=== PATIENT | female | born 1990 | race Caucasian/White ===

== ENCOUNTER → 2017-06-21 | Outpatient (REF) | payer OTHER ==
[2017-06-21 11:51] LABS: MEAN CORPUSCULAR HEMOGLOBIN 30.2 pg (27.0-33.0); MEAN CORPUSCULAR HGB CONC 33.9 g/dl (32.0-36.5); MEAN CORPUSCULAR VOLUME 89.1 fl (80.0-96.0); PLATELET COUNT, AUTOMATED 250 10^3/uL (150-450); RED CELL DISTRIBUTION WIDTH 12.3 % (11.5-14.5); WHITE BLOOD COUNT 6.1 10^3/uL (4.0-10.0)
[2017-06-21 12:35] LABS: ALBUMIN 3.9 GM/DL (3.2-5.2); ALBUMIN/GLOBULIN RATIO 1.11 (1.00-1.93); ALKALINE PHOSPHATASE 48 U/L (45-117); ALT/SGPT 23 U/L (12-78); ANION GAP 8 MEQ/L (8-16); AST/SGOT 19 U/L (7-37); BILIRUBIN,TOTAL 0.6 MG/DL (0.2-1.0); BLOOD UREA NITROGEN 12 MG/DL (7-18); CALCIUM LEVEL 8.7 MG/DL (8.5-10.1); CARBON DIOXIDE LEVEL 25 MEQ/L (21-32); CHLORIDE LEVEL 108 MEQ/L (98-107); CREATININE FOR GFR 0.94 MG/DL (0.55-1.02); FREE T4 1.13 NG/DL (0.76-1.46); GLOMERULAR FILTRATION RATE > 60.0 (>60); GLUCOSE, FASTING 84 MG/DL (70-105); POTASSIUM SERUM 4.4 MEQ/L (3.5-5.1); SODIUM LEVEL 141 MEQ/L (136-145); TOTAL PROTEIN 7.4 GM/DL (6.4-8.2)
[2017-06-21 12:47] LABS: VITAMIN B12 LEVEL 239 PG/ML (247-911)
== END ==
LOC: M SFHCCLAY 07:03
PROVIDERS: ATTEND Family Medicine
DX: R63.5 Abnormal weight gain (principal)

== ENCOUNTER → 2017-07-01 | Outpatient (REF) | payer OTHER | LOC: M SFHCCLAY 15:35 | PROVIDERS: ATTEND Family Medicine | DX: Z12.4 Encounter for screening for malignant neoplasm of cervix (principal) | CPT/HCPCS: 87070; 87491; 87591; G0123 ==

== ENCOUNTER → 2017-08-09 | Outpatient (REF) | payer OTHER ==
[2017-08-09 11:55] LABS: VITAMIN B12 LEVEL 692 PG/ML (247-911)
[2017-08-09 12:03] LABS: ERYTHROCYTE SEDIMENTATION RATE 3 mm/hr (0-20)
[2017-08-09 12:14] LABS: C REACTIVE PROTEIN QUANTITATIV 1.03 MG/DL (0.00-0.30); RHEUMATOID FACTOR QUANT < 10.0 IU/ML (0-15.0)
[2017-08-09 12:14] LABS: URIC ACID 4.6 MG/DL (2.6-6.0)
[2017-08-11 00:06] LABS: ANA (HEP2) Negative (.)
== END ==
LOC: M SFHCCLAY 07:00
DX: M25.50 Pain in unspecified joint (principal); E55.9 Vitamin D deficiency, unspecified

== ENCOUNTER → 2017-09-14 | Outpatient (CLI) | payer OTHER | LOC: M CLY 15:34 | DX: M25.552 Pain in left hip (principal); M25.551 Pain in right hip | CPT/HCPCS: 73521 ==

== ENCOUNTER → 2017-09-14 | Outpatient (REF) | payer OTHER ==
[2017-09-17 00:07] LABS: Lyme Disease IgG/IgM Antibodie <0.91 ISR (0.00-0.90); Lyme Disease IgM Ab Quantitati <0.80 index (0.00-0.79)
== END ==
LOC: M SFHCCLAY 15:08
DX: M25.552 Pain in left hip (principal); M25.551 Pain in right hip

== ENCOUNTER → 2017-10-25 | Outpatient (REF) | payer OTHER ==
[2017-10-25 21:00] LABS: C REACTIVE PROTEIN QUANTITATIV 0.78 MG/DL (0.00-0.30)
[2017-10-28 00:08] LABS: CYCLIC CITRULLINATED PEPTIDE 5 units (0-19)
== END ==
LOC: M SFHCLERA 14:41
DX: R79.82 Elevated C-reactive protein (CRP) (principal)
CPT/HCPCS: 86140

== ENCOUNTER → 2018-04-08 | Outpatient (CLI) | payer OTHER ==
[2018-04-08 08:50] LABS: BASO # 0.1 10^3/uL (0.0-0.2); BASO % 0.5 % (0.0-1.0); HEMATOCRIT 41.9 % (36.0-47.0); HEMOGLOBIN 14.2 g/dl (12.0-15.5); IMMATURE GRANULOCYTE % 0.2 % (0-3.0); LYMPH # 1.9 10^3/uL (1.5-6.5); LYMPH % 19.6 % (24.0-44.0); MEAN CORPUSCULAR HEMOGLOBIN 30.6 pg (27.0-33.0); MEAN CORPUSCULAR HGB CONC 33.9 g/dl (32.0-36.5); MEAN CORPUSCULAR VOLUME 90.3 fl (80.0-96.0); MONO # 0.8 10^3/uL (0.0-0.8); MONO % 8.2 % (0.0-5.0); NEUTROPHILS # 6.8 10^3/uL (1.8-7.7); NEUTROPHILS % 71.5 % (36.0-66.0); PLATELET COUNT, AUTOMATED 242 10^3/uL (150-450); RED BLOOD COUNT 4.64 10^6/uL (4.00-5.40); RED CELL DISTRIBUTION WIDTH 12.4 % (11.5-14.5); WHITE BLOOD COUNT 9.5 10^3/uL (4.0-10.0)
[2018-04-08 09:11] LABS: ANION GAP 8 MEQ/L (8-16); BLOOD UREA NITROGEN 15 MG/DL (7-18); CALCIUM LEVEL 8.8 MG/DL (8.5-10.1); CARBON DIOXIDE LEVEL 26 MEQ/L (21-32); CHLORIDE LEVEL 108 MEQ/L (98-107); CREATININE FOR GFR 1.12 MG/DL (0.55-1.30); GLOMERULAR FILTRATION RATE > 60.0 (>60); GLUCOSE, FASTING 85 MG/DL (70-100); SODIUM LEVEL 142 MEQ/L (136-145)
== END ==
LOC: M WUC 08:11
DX: Z01.818 Encounter for other preprocedural examination (principal); M20.11 Hallux valgus (acquired), right foot; M79.671 Pain in right foot
CPT/HCPCS: 80048

== ENCOUNTER 2018-04-15 07:12 | Day surgery (SDC) | payer OTHER ==
[2018-04-15] MEDS: LR 1,000 ML IV (07:49)
[2018-04-15 07:58] LABS: CONTROL LINE HCG INT CTR LINE PRESENT; HCG, SERUM QUALITATIVE NEGATIVE (NEGATIVE)
[2018-04-15] MEDS ORDERED: dexameTHASONE 4 MG/ML 1ML VIAL (J1100) As Ordered (08:06)
[2018-04-15] MEDS ORDERED: fentaNYL 100 MCG/2 ML INJECTION (J3010) As Ordered (08:54)
[2018-04-15] MEDS ORDERED: MIDAZOLAM INJ 2 MG/2 ML VIAL (J2250) As Ordered (08:54)
[2018-04-15] MEDS ORDERED: PROPOFOL 200 MG/20 ML VIAL As Ordered (08:54)
[2018-04-15] MEDS: BUPIVACAINE HCL 0.5% 30 ML VIAL As Ordered (08:56)
[2018-04-15] MEDS: LIDOCAINE 2% MDV 20 ML VIAL As Ordered (08:56)
[2018-04-15] MEDS: NEOSPORIN GU IRRIG 20 ML VIAL As Ordered (09:14)
[2018-04-15] MEDS: BACITRACIN PWD 50,000 UNITS VIAL As Ordered (09:14)
[2018-04-15] MEDS ORDERED: IBUPROFEN 800 MG TAB As Ordered (09:56)
[2018-04-15] MEDS: IBUPROFEN 800 MG TAB PO (10:00)
== END 2018-04-15 11:12 | disposition home or self-care (01) ==
LOC: M SDC 07:12
DX: M20.11 Hallux valgus (acquired), right foot (principal); I34.8 Other nonrheumatic mitral valve disorders
CPT/HCPCS: 28296

== ENCOUNTER 2018-09-06 19:01 | Emergency (ER) | payer OTHER ==
[~2018-09-06] VITALS: Ht 170.2 cm; Wt 80.5 kg
[2018-09-06] MEDS ORDERED: [UNRECOGNIZED DRUG - OTHER] (20:00)
[2018-09-06] MEDS ORDERED: vitamin d PO (20:00)
[2018-09-06] MEDS ORDERED: vitamin b PO (20:00)
[2018-09-06] MEDS ORDERED: TETRACAINE 0.5% OPHTH SOLN 4ML OU ONE (20:30)
--- NOTE | 2018-09-06 21:30 | REP ---
Clinical: Facial spasms and blurred vision . Comparison: None . Findings: The ventricles, sulci, and cisterns are normal in position and appearance. Silvestre-white differentiation is maintained. No acute intracranial hemorrhage, mass/mass effect, pathology or trauma/injury. No evidence for acute infarction. No extra-axial fluid collection. Calvarium is intact. Paranasal sinuses and mastoid air cells are clear. Impression: Normal noncontrast head CT. No evidence for acute intracranial pathology or trauma/injury. Electronically Signed by Edmundo Osorio MD 09/06/2018 09:21 P
[2018-09-06 21:55] VITALS: BP 131/80
== END 2018-09-06 22:02 | disposition home or self-care (01) ==
LOC: M ED 19:01
DX: H53.8 Other visual disturbances (principal); G51.0 Bell's palsy; I34.1 Nonrheumatic mitral (valve) prolapse; Z79.899 Other long term (current) drug therapy

== ENCOUNTER → 2018-09-06 | Outpatient (REF) | payer OTHER ==
[~2018-09-06] MED LIST: [UNRECOGNIZED DRUG - OTHER]; vitamin b PO; vitamin d PO
[2018-09-06 20:53] LABS: CHLAMYDIA DNA AMPLIFICATION NEGATIVE (NEGATIVE); GC DNA AMPLIFICATION NEGATIVE (NEGATIVE)
== END ==
LOC: M SFHCWAGY 15:32
PROVIDERS: ATTEND Nurse Practitioner Women's Health
DX: Z12.4 Encounter for screening for malignant neoplasm of cervix (principal); Z11.3 Encounter for screening for infections with a predominantly sexual mode of transmission
CPT/HCPCS: 87491; 87591; G0123

== ENCOUNTER → 2019-04-19 | Outpatient (REF) | payer OTHER | LOC: M LAB REF 12:00 | PROVIDERS: ATTEND Physician Assistant | DX: J03.90 Acute tonsillitis, unspecified (principal) ==

== ENCOUNTER → 2019-05-08 | Outpatient (REF) | payer OTHER | LOC: M LAB REF 09:54 | PROVIDERS: ATTEND Physician Assistant | DX: N39.0 Urinary tract infection, site not specified (principal) ==

== ENCOUNTER → 2019-09-21 | Outpatient (REF) | payer OTHER ==
[~2019-09-21] MED LIST changes: +ACET-683 PO; +ERRI0.35 PO; +OXYC-517 PO
[2019-09-21 15:26] LABS: CHLAMYDIA DNA AMPLIFICATION NEGATIVE (NEGATIVE); GC DNA AMPLIFICATION NEGATIVE (NEGATIVE)
== END ==
LOC: M SFHCWAGY 13:02
PROVIDERS: ATTEND Nurse Practitioner Women's Health
DX: Z11.3 Encounter for screening for infections with a predominantly sexual mode of transmission (principal)
CPT/HCPCS: 87661; G0123

== ENCOUNTER 2019-09-27 14:23 | Day surgery (SDC) | payer OTHER ==
[~2019-09-27] VITALS: Ht 170.2 cm; Wt 87.1 kg
[~2019-09-27 14:23] MED LIST changes: +LIDOCAINE 2% INJ 100 MG/5 ML SDV (FOR ANES.) As Ordered ONE; +LR 1,000 ML IV ONE; +MIDAZOLAM INJ 2 MG/2 ML VIAL (J2250) As Ordered ONE; +ONDANSETRON 4MG/2ML VIAL (J2405) As Ordered ONE; +ceFAZolin SOD 2 GM in IV 1 EA IV ONE; +dexameTHASONE 4 MG/ML 1ML VIAL (J1100) As Ordered ONE; +fentaNYL 100 MCG/2 ML INJECTION (J3010) As Ordered ONE; +propofoL 200 MG/20 ML VIAL As Ordered ONE
[2019-09-27] MEDS ORDERED: ROPIvacaine 0.5% 30 ML INJECTION (J2795 PER 1MG) ONE ×2 (14:24)
[2019-09-27] MEDS ORDERED: dexameTHASONE 10 MG/1 ML VIAL PRES.FREE (J1100) ONE ×2 (14:24)
[2019-09-27] MEDS ORDERED: fentaNYL 100 MCG/2 ML INJECTION (J3010) As Ordered ONE ×2 (15:31→17:26)
[2019-09-27] MEDS ORDERED: MIDAZOLAM INJ 2 MG/2 ML VIAL (J2250) As Ordered ONE (15:31)
[2019-09-27] MEDS ORDERED: fentaNYL 100 MCG/2 ML INJECTION (J3010) IV ONE (16:00)
[2019-09-27] MEDS ORDERED: MIDAZOLAM INJ 2 MG/2 ML VIAL (J2250) IV ONE (16:00)
[2019-09-27] MEDS ORDERED: ACETAMINOPHEN 1000MG 100ML IV BTL (OFIRMEV) (J0131 PER 10MG) As Ordered ONE (16:24)
[2019-09-27] MEDS ORDERED: KETOROLAC 60 MG/2 ML VIAL (J1885) As Ordered ONE (16:25)
--- NOTE | 2019-09-27 17:59 | REP ---
Left ankle: Five views. History: Intraoperative imaging. 41 seconds of fluoroscopy time is reported. Findings: A sequence of five last image hold fluoroscopically obtained spot radiographs of the left ankle document open reduction internal fixation procedure. Electronically Signed by Ifeanyi Schaefer MD 09/27/2019 05:50 P
[2019-09-27] MEDS ORDERED: fentaNYL 100 MCG/2 ML INJECTION (J3010) IV PRN (18:15)
[2019-09-27] MEDS ORDERED: LR 1,000 ML IV SCH ×2 (18:15→18:30)
[2019-09-27] MEDS ORDERED: oxyCODONE 5MG TAB PO PRN (18:15)
[2019-09-27] MEDS ORDERED: ONDANSETRON 4MG/2ML VIAL (J2405) IV PRN (18:15)
[2019-09-27 19:30] VITALS: BP 134/65
--- NOTE | 2019-09-27 20:41 | RO ---
DATE OF PROCEDURE: 09/27/2019 PREPROCEDURE DIAGNOSIS: Left bimalleolar equivalent ankle fracture. POSTPROCEDURE DIAGNOSIS: Left bimalleolar equivalent ankle fracture. PROCEDURE: Open reduction, internal fixation (ORIF) left ankle. SURGEON: Jazmín Matthews MD DRY KILN FEEDER: CHANTELLE Llamas ESTIMATED BLOOD LOSS: 75 mL. COMPLICATIONS: None. CONDITION: Stable to recovery. INDICATIONS: Nely Kimbrough is a 29-year-old female who sustained a mechanical fall. The patient sustained an unstable left ankle fracture. Risks and benefits of the surgery were discussed with the patient in detail and included but not limited to infection, damage to nerves and blood vessels, continued pain and stiffness, need for additional procedures. Informed consent was obtained in the office. DESCRIPTION OF PROCEDURE: The patient was met in the preoperative holding area where her left lower extremity was marked as the correct operative site. She was taken to the operating room and placed in the supine position on the operating room table. Bony prominences were well padded. She received antibiotics within 60 minutes prior to incision. A well padded tourniquet was placed on the left upper thigh. She was then prepped and draped in the normal sterile fashion. An official time-out was held where the correct patient, operative site, and operative procedure were verified. An incision was made over the posterolateral aspect of the distal fibula. Fracture was approached and was found to be comminuted and extending fairly proximally. The fracture was cleaned with hematoma and debrided. It was reduced using a series of pointed reduction clamps. This was further secured using a 0.062 K wire. Following this, a 2.7 mm lag screw was placed by technique. Next, an Arthrex locking plate was selected. This fit nicely to the bone. It was secured proximally with a 3.5 mm cortical screw and then distally with 2.7 mm locking screws. X-rays were performed in AP, mortise and lateral view and found to be satisfactory. There was an external rotation stress view that was done and there was no widening of the ankle mortise. A cotton exam was also negative. Following this, copious irrigation was performed. Periosteum was closed over the plate. Soft tissues were closed with 3-0 Vicryl and the skin was closed using 3-0 nylon. A well padded splint was applied. The patient was extubated and transferred to the recovery room in stable condition. PLAN: The patient will be non weightbearing to the left lower extremity for 6 weeks. She will be on aspirin for deep vein thrombosis (DVT) prophylaxis. I will see her back in 2 weeks for a splint change and placement of a cast. She will transition into a boot at 4 weeks postoperatively.
== END 2019-09-27 19:50 | disposition home or self-care (01) ==
LOC: M SDC 14:23
PROVIDERS: ATTEND Orthopaedic Surgery
DX: S82.841A Displaced bimalleolar fracture of right lower leg, initial encounter for closed fracture (principal); W01.0XXA Fall on same level from slipping, tripping and stumbling without subsequent striking against object, initial encounter; Y92.89 Other specified places as the place of occurrence of the external cause; Y93.9 Activity, unspecified; Y99.9 Unspecified external cause status; I05.9 Rheumatic mitral valve disease, unspecified; Z79.899 Other long term (current) drug therapy; Z88.8 Allergy status to other drugs, medicaments and biological substances
CPT/HCPCS: 27814; 64445; 76000; 81025; C1713; J0131; J0690; J1100; J2250; J2405; J2795; J3010

== ENCOUNTER → 2020-03-16 | Outpatient (CLI) | payer BC ==
[~2020-03-16] MED LIST changes: -ERRI0.35 PO; +ERRI0.355 PO; -LIDOCAINE 2% INJ 100 MG/5 ML SDV (FOR ANES.) As Ordered ONE; -LR 1,000 ML IV ONE; -MIDAZOLAM INJ 2 MG/2 ML VIAL (J2250) As Ordered ONE; -ONDANSETRON 4MG/2ML VIAL (J2405) As Ordered ONE; -ceFAZolin SOD 2 GM in IV 1 EA IV ONE; -dexameTHASONE 4 MG/ML 1ML VIAL (J1100) As Ordered ONE; -fentaNYL 100 MCG/2 ML INJECTION (J3010) As Ordered ONE; -propofoL 200 MG/20 ML VIAL As Ordered ONE
== END ==
LOC: M LABSMTC 08:21
PROVIDERS: ATTEND Orthopaedic Surgery
DX: Z20.828 Contact with and (suspected) exposure to other viral communicable diseases (principal)

== ENCOUNTER → 2020-09-24 | Outpatient (REF) | payer BC | LOC: M SFHCWAGY 18:53 | PROVIDERS: ATTEND Nurse Practitioner Women's Health | DX: Z01.419 Encounter for gynecological examination (general) (routine) without abnormal findings (principal) ==

== ENCOUNTER → 2020-10-21 | Outpatient (REF) | payer BC | LOC: M SFHCWAGY 13:51 | PROVIDERS: ATTEND Nurse Practitioner Women's Health | DX: R87.610 Atypical squamous cells of undetermined significance on cytologic smear of cervix (ASC-US) (principal); R87.810 Cervical high risk human papillomavirus (HPV) DNA test positive ==

== ENCOUNTER → 2021-09-16 | Outpatient (REF) | payer OTHER | LOC: M PLALAB 07:59 | PROVIDERS: ATTEND Advanced Practice Midwife | DX: Z12.4 Encounter for screening for malignant neoplasm of cervix (principal) | CPT/HCPCS: 87624; G0123 ==